=== PATIENT | male | born 1950 | race Caucasian/White ===

== ENCOUNTER 2024-03-19 13:31 | Observation (INO) | payer OTHER ==
[~2024-03-19] VITALS: Ht 180.3 cm; Wt 81.7 kg
[2024-03-19] MEDS ORDERED: OLANZapine ODT 5 MG Tab PO ONE (13:45)
[2024-03-19] MEDS ORDERED: LamoTRIgine 25 MG Tab PO ONE (18:25)
[2024-03-19] MEDS ORDERED: OLANZapine 10 MG Vial IM ONE (18:30)
[2024-03-19] MEDS ORDERED: LamoTRIgine 100 MG Tab PO ONE (18:30)
[2024-03-19 18:51] LABS: BASOPHILS ABSOLUTE AUTO 0.03 K/mm3 (0.00-0.23); BASOPHILS PERCENT AUTO 0 % (0-2); EOSINOPHILS ABSOLUTE AUTO 0.01 K/mm3 (0.00-0.68); EOSINOPHILS PERCENT AUTO 0 % (0-6); Hematocrit 41.9 % (37.0-53.0); Hemoglobin 14.3 g/dL (13.5-17.5); IMMATURE GRAN ABSOLUTE AUTO 0.01 K/mm3 (0.00-0.10); IMMATURE GRAN PERCENT AUTO 0 % (0-1); LYMPHOCYTES ABSOLUTE AUTO 1.12 K/mm3 (0.84-5.20); LYMPHOCYTES PERCENT AUTO 16 % (21-46); MONOCYTES ABSOLUTE AUTO 0.56 K/mm3 (0.16-1.47); MONOCYTES PERCENT AUTO 8 % (4-13); Mean Corpuscular HGB Conc 34.1 g/dL (31.5-36.5); Mean Corpuscular Volume 91 fL (80-100); Mean Platelet Volume 9.4 fL (9.1-12.4); NEUTROPHILS ABSOLUTE AUTO 5.42 K/mm3 (1.96-9.15); NEUTROPHILS PERCENT AUTO 76 % (41-73); Platelet Count 258 K/mm3 (150-400); RDW Coefficient Variation 13.7 % (11.7-14.2); RDW Standard Deviation 44.9 fL (35.1-46.3); Red Blood Cell Count 4.62 M/mm3 (4.30-5.90); White Blood Cell Count 7.15 K/mm3 (4.00-11.30)
[2024-03-19 19:00] LABS: Ethanol (Alcohol), Blood, Med <3 mg/dL; Salicylate <1.7 mg/dL (2.8-20.0)
[2024-03-19 19:07] LABS: Alanine Aminotransfer (ALT/SGP 48 U/L (12-78); Albumin, Blood 3.3 g/dL (3.4-5.0); Albumin/Globulin Ratio 0.9 (0.8-1.8); Alk Phos 94 U/L (50-136); Anion Gap 9 mmol/L (3-11); Aspartate Aminotrans (AST/SGOT 48 U/L (12-37); Bilirubin, Total 0.8 mg/dL (0.1-1.0); Blood Urea Nitrogen 13 mg/dL (8-24); Bun/Creatinine Ratio 19.1 (12.0-20.0); CO2, Blood 26 mmol/L (21-32); Calcium, Blood 8.8 mg/dL (8.5-10.1); Chloride, Blood 110 mmol/L (98-108); Creatinine, Blood 0.68 mg/dL (0.60-1.20); Globulin, Blood 3.6 g/dL (2.2-4.0); Glomerular Filtration Rate 98 (60-); Glucose, Blood 124 mg/dL (70-99); Potassium, Blood 3.5 mmol/L (3.5-5.5); Sodium, Blood 141 mmol/L (136-145); Total Protein, Blood 6.9 g/dL (6.4-8.2)
[2024-03-19 19:15] VITALS: BP 129/71
[2024-03-19 19:16] LABS: Acetaminophen, Random <2.0 ug/mL (10.0-30.0)
[2024-03-19] MEDS ORDERED: LORazepam 2 MG/ML 1ML Injection IV ONE (20:15)
[2024-03-19] MEDS ORDERED: Droperidol 5 mg/2 ml Vial IV ONE (23:00)
[2024-03-19 23:50] LABS: Source, Urine Clean Catch
[2024-03-19 23:53] LABS: Bilirubin, Urine Neg (Neg); Blood, Urine Neg (Neg); Glucose Qualitative, Urine Neg (Neg); Ketones, Urine 1+ (Neg); Leukocyte Esterase, Urine Neg (Neg); Nitrite, Urine Neg (Neg); Protein, Urine Neg (Neg); Urobilinogen, Urine NORM (Normal)
[2024-03-19 23:54] LABS: Appearance, Urine Clear (Clear); Color, Urine Yellow (P-Yellow)
[2024-03-20 00:07] LABS: U Amphetamine Screen Not Detected; U Barbituate Screen Not Detected; U Benzodiazapine Screen Not Detected; U Buprenorphine Screen Not Detected; U Cannabinoids Screen Not Detected; U Cocaine Screen Not Detected; U Methadone Screen Not Detected; U Methamphetamine Screen Not Detected; U Opiates Screen Not Detected; U Oxycodone Screen Not Detected; U Phencyclidine Screen Not Detected
[2024-03-20] MEDS ORDERED: LamoTRIgine 100 MG Tab PO SCH (09:00)
== END 2024-03-20 16:11 | disposition home or self-care (01) ==
LOC: ER 13:31 → EOR 13:32
PROVIDERS: Emergency Medicine; ADMIT Emergency Medicine
DX: F31.9 Bipolar disorder, unspecified (principal); Z91.148 Patient's other noncompliance with medication regimen for other reason
CPT/HCPCS: 80053; 80320; 81003; 85025; 93005; 93010; 96372-59; 96374; 96375; 99285-25; A9270; G0378; G0480; J1790; J2060

== ENCOUNTER 2024-08-22 14:37 | Emergency (ER) | payer OTHER ==
[~2024-08-22] VITALS: Ht 175.3 cm; Wt 88.5 kg
[2024-08-22 14:52] VITALS: BP 143/82
== END 2024-08-22 15:59 | disposition home or self-care (01) ==
LOC: ER 14:37
DX: F23 Brief psychotic disorder (principal); F31.9 Bipolar disorder, unspecified
CPT/HCPCS: 99282

== ENCOUNTER → 2024-08-24 | Outpatient (CLI) | payer OTHER ==
[2024-08-24 11:51] LABS: Source, Urine Voided
[2024-08-24 12:35] LABS: BASOPHILS ABSOLUTE AUTO 0.04 K/mm3 (0.00-0.23); BASOPHILS PERCENT AUTO 1 % (0-2); EOSINOPHILS ABSOLUTE AUTO 0.03 K/mm3 (0.00-0.68); EOSINOPHILS PERCENT AUTO 0 % (0-6); Hematocrit 41.4 % (37.0-53.0); Hemoglobin 14.2 g/dL (13.5-17.5); IMMATURE GRAN ABSOLUTE AUTO 0.01 K/mm3 (0.00-0.10); IMMATURE GRAN PERCENT AUTO 0 % (0-1); LYMPHOCYTES ABSOLUTE AUTO 0.94 K/mm3 (0.84-5.20); LYMPHOCYTES PERCENT AUTO 13 % (21-46); MONOCYTES ABSOLUTE AUTO 0.63 K/mm3 (0.16-1.47); MONOCYTES PERCENT AUTO 9 % (4-13); Mean Corpuscular HGB 30.7 pg (26.0-34.0); Mean Corpuscular HGB Conc 34.3 g/dL (31.5-36.5); Mean Corpuscular Volume 90 fL (80-100); Mean Platelet Volume 9.9 fL (9.1-12.4); NEUTROPHILS ABSOLUTE AUTO 5.66 K/mm3 (1.96-9.15); NEUTROPHILS PERCENT AUTO 78 % (41-73); Platelet Count 278 K/mm3 (150-400); RDW Coefficient Variation 12.8 % (11.7-14.2); RDW Standard Deviation 41.9 fL (35.1-46.3); Red Blood Cell Count 4.62 M/mm3 (4.30-5.90); White Blood Cell Count 7.31 K/mm3 (4.00-11.30)
[2024-08-24 12:54] LABS: Appearance, Urine Clear (Clear); Bilirubin, Urine Neg (Neg); Blood, Urine 1+ (Neg); Color, Urine Yellow (P-Yellow); Glucose Qualitative, Urine Neg (Neg); Ketones, Urine 2+ (Neg); Leukocyte Esterase, Urine Neg (Neg); Nitrite, Urine Neg (Neg); Protein, Urine 1+ (Neg); Urobilinogen, Urine NORM (Normal)
[2024-08-24 13:08] LABS: Bacteria Not Seen /hpf; Mucus Light (0-Heavy); Squamous Epithelial Cells Not Seen /hpf (Few); White Blood Cells, Urine Not Seen /hpf (0-5)
[2024-08-24 13:13] LABS: Albumin, Blood 3.8 g/dL (3.4-5.0); Albumin/Globulin Ratio 1.1 (0.8-1.8); Bilirubin, Total 1.1 mg/dL (0.1-1.0); Bun/Creatinine Ratio 16.6 (12.0-20.0); Calcium, Blood 8.8 mg/dL (8.5-10.1); Creatinine, Blood 0.72 mg/dL (0.60-1.20); Globulin, Blood 3.5 g/dL (2.2-4.0); Potassium, Blood 3.7 mmol/L (3.5-5.5); Thyroid Stimulating Hormone 1.45 uIU/mL (0.360-4.800); Total Protein, Blood 7.3 g/dL (6.4-8.2)
[2024-08-24 15:23] LABS: Lithium 0.45 mmol/L (0.60-1.20)
== END ==
LOC: LAB SHORT 11:49 → LAB 11:49
PROVIDERS: Nurse Practitioner Psychiatric/Mental Health; Student in an Organized Health Care Education/Training Program
DX: R41.82 Altered mental status, unspecified (principal); F31.9 Bipolar disorder, unspecified
CPT/HCPCS: 80053; 80178; 81001; 84443; 85025

== ENCOUNTER 2024-09-01 17:49 | Emergency (ER) | payer OTHER ==
[~2024-09-01] VITALS: Ht 175.3 cm; Wt 88.5 kg
[2024-09-01] MEDS ORDERED: NS 1,000 ML IV SCH (18:20)
[2024-09-01 18:22] LABS: BASOPHILS ABSOLUTE AUTO 0.03 K/mm3 (0.00-0.23); BASOPHILS PERCENT AUTO 0 % (0-2); EOSINOPHILS PERCENT AUTO 0 % (0-6); Hematocrit 38.9 % (37.0-53.0); Hemoglobin 13.2 g/dL (13.5-17.5); IMMATURE GRAN ABSOLUTE AUTO 0.05 K/mm3 (0.00-0.10); IMMATURE GRAN PERCENT AUTO 0 % (0-1); LYMPHOCYTES ABSOLUTE AUTO 0.32 K/mm3 (0.84-5.20); LYMPHOCYTES PERCENT AUTO 3 % (21-46); MONOCYTES ABSOLUTE AUTO 0.87 K/mm3 (0.16-1.47); MONOCYTES PERCENT AUTO 7 % (4-13); Mean Corpuscular HGB 30.6 pg (26.0-34.0); Mean Corpuscular HGB Conc 33.9 g/dL (31.5-36.5); Mean Corpuscular Volume 90 fL (80-100); Mean Platelet Volume 9.6 fL (9.1-12.4); NEUTROPHILS ABSOLUTE AUTO 11.37 K/mm3 (1.96-9.15); NEUTROPHILS PERCENT AUTO 90 % (41-73); Platelet Count 262 K/mm3 (150-400); RDW Coefficient Variation 12.9 % (11.7-14.2); RDW Standard Deviation 42.9 fL (35.1-46.3); Red Blood Cell Count 4.31 M/mm3 (4.30-5.90); White Blood Cell Count 12.64 K/mm3 (4.00-11.30)
[2024-09-01] MEDS ORDERED: Lithium Carbon150 MG PO (18:30)
[2024-09-01] MEDS ORDERED: VITAMIN D350 MC3 PO (18:31)
[2024-09-01] MEDS ORDERED: ARIPIPRAZOLE IM (18:35)
[2024-09-01 18:40] LABS: Ethanol (Alcohol), Blood, Med <3 mg/dL
[2024-09-01] MEDS ORDERED: MIRT15ST PO (18:40)
[2024-09-01] MEDS ORDERED: ATORVASTATIN CALCIUM PO (18:40)
[2024-09-01] MEDS ORDERED: LAMO100 PO (18:41)
[2024-09-01] MEDS ORDERED: Lithium Carbon450 MG PO (18:41)
[2024-09-01 18:46] LABS: Alanine Aminotransfer (ALT/SGP 69 U/L (12-78); Albumin, Blood 3.5 g/dL (3.4-5.0); Albumin/Globulin Ratio 1.1 (0.8-1.8); Alk Phos 76 U/L (50-136); Anion Gap 11 mmol/L (3-11); Aspartate Aminotrans (AST/SGOT 59 U/L (12-37); Bilirubin, Total 1.3 mg/dL (0.1-1.0); Blood Urea Nitrogen 21 mg/dL (8-24); Bun/Creatinine Ratio 13.1 (12.0-20.0); CO2, Blood 25 mmol/L (21-32); Calcium, Blood 9.3 mg/dL (8.5-10.1); Chloride, Blood 106 mmol/L (98-108); Globulin, Blood 3.3 g/dL (2.2-4.0); Glomerular Filtration Rate 45 (60-); Glucose, Blood 154 mg/dL (70-99); Potassium, Blood 4.4 mmol/L (3.5-5.5); Sodium, Blood 138 mmol/L (136-145); Total Protein, Blood 6.8 g/dL (6.4-8.2)
[2024-09-01 19:55] LABS: Lithium 0.71 mmol/L (0.60-1.20)
[2024-09-01 21:19] LABS: Source, Urine Clean Catch
[2024-09-01 21:21] LABS: Appearance, Urine Clear (Clear); Bilirubin, Urine Neg (Neg); Blood, Urine 4+ (Neg); Color, Urine Amber (P-Yellow); Glucose Qualitative, Urine Neg (Neg); Ketones, Urine 2+ (Neg); Leukocyte Esterase, Urine Neg (Neg); Nitrite, Urine Neg (Neg); Protein, Urine 2+ (Neg); Urobilinogen, Urine 2+ (Normal)
[2024-09-01 21:30] VITALS: BP 157/79
[2024-09-01 21:48] LABS: Bacteria Few /hpf; Calcium Oxalate Crystals Few /hpf; Red Blood Cells, Urine 0-2 /hpf (0-2); Squamous Epithelial Cells Mod /hpf (Few); White Blood Cells, Urine 0-2 /hpf (0-5)
[2024-09-01 21:50] LABS: U Amphetamine Screen Not Detected; U Barbituate Screen Not Detected; U Benzodiazapine Screen Not Detected; U Buprenorphine Screen Not Detected; U Cannabinoids Screen Not Detected; U Cocaine Screen Not Detected; U Methadone Screen Not Detected; U Methamphetamine Screen Not Detected; U Opiates Screen Not Detected; U Phencyclidine Screen Not Detected
[2024-09-01 21:51] LABS: U Oxycodone Screen Not Detected
== END 2024-09-01 21:59 | disposition home or self-care (01) ==
LOC: ER 17:49
PROVIDERS: Emergency Medicine
DX: M25.571 Pain in right ankle and joints of right foot (principal); W18.30XA Fall on same level, unspecified, initial encounter; F59 Unspecified behavioral syndromes associated with physiological disturbances and physical factors; R79.89 Other specified abnormal findings of blood chemistry; Z79.899 Other long term (current) drug therapy; Z79.891 Long term (current) use of opiate analgesic; Z79.51 Long term (current) use of inhaled steroids; Z79.52 Long term (current) use of systemic steroids; Z79.83 Long term (current) use of bisphosphonates; Z79.890 Hormone replacement therapy
CPT/HCPCS: 80053; 80178; 80320; 81001; 85025; 93005; 93010; 99285-25; J7030

== ENCOUNTER → 2024-09-07 | Outpatient (CLI) | payer OTHER ==
[~2024-09-07] MED LIST: ARIPIPRAZOLE IM; ATORVASTATIN CALCIUM PO; LAMO100 PO; Lithium Carbon150 MG PO; Lithium Carbon450 MG PO; MIRT15ST PO; VITAMIN D350 MC3 PO
[2024-09-07 11:44] LABS: BASOPHILS ABSOLUTE AUTO 0.03 K/mm3 (0.00-0.23); BASOPHILS PERCENT AUTO 0 % (0-2); EOSINOPHILS ABSOLUTE AUTO 0.01 K/mm3 (0.00-0.68); EOSINOPHILS PERCENT AUTO 0 % (0-6); Hematocrit 42.3 % (37.0-53.0); Hemoglobin 14.9 g/dL (13.5-17.5); IMMATURE GRAN ABSOLUTE AUTO 0.02 K/mm3 (0.00-0.10); IMMATURE GRAN PERCENT AUTO 0 % (0-1); LYMPHOCYTES ABSOLUTE AUTO 0.63 K/mm3 (0.84-5.20); LYMPHOCYTES PERCENT AUTO 8 % (21-46); MONOCYTES ABSOLUTE AUTO 0.54 K/mm3 (0.16-1.47); MONOCYTES PERCENT AUTO 7 % (4-13); Mean Corpuscular HGB 31.1 pg (26.0-34.0); Mean Corpuscular HGB Conc 35.2 g/dL (31.5-36.5); Mean Corpuscular Volume 88 fL (80-100); NEUTROPHILS PERCENT AUTO 85 % (41-73); Platelet Count 319 K/mm3 (150-400); RDW Coefficient Variation 12.9 % (11.7-14.2); RDW Standard Deviation 41.9 fL (35.1-46.3); Red Blood Cell Count 4.79 M/mm3 (4.30-5.90); White Blood Cell Count 7.93 K/mm3 (4.00-11.30)
[2024-09-07 11:55] LABS: Lithium <0.20 mmol/L (0.60-1.20)
[2024-09-07 12:03] LABS: Albumin, Blood 3.5 g/dL (3.4-5.0); Albumin/Globulin Ratio 0.9 (0.8-1.8); Bun/Creatinine Ratio 16.5 (12.0-20.0); Calcium, Blood 8.9 mg/dL (8.5-10.1); Creatinine, Blood 0.67 mg/dL (0.60-1.20); Globulin, Blood 3.7 g/dL (2.2-4.0); Potassium, Blood 3.2 mmol/L (3.5-5.5); Total Protein, Blood 7.2 g/dL (6.4-8.2)
== END ==
LOC: LAB SHORT 09:25 → LAB 09:25
PROVIDERS: Student in an Organized Health Care Education/Training Program
DX: F31.74 Bipolar disorder, in full remission, most recent episode manic (principal)
CPT/HCPCS: 80053; 80178; 85025

== ENCOUNTER 2024-09-14 22:10 | Observation (INO) | payer OTHER ==
[~2024-09-14] VITALS: Ht 182.9 cm; Wt 65.8 kg
[2024-09-15] MEDS ORDERED: NS 1,000 ML IV SCH (00:30)
[2024-09-15] MEDS ORDERED: OLANZapine 10 MG Vial IM ONE (01:05)
[2024-09-15] MEDS ORDERED: Haloperidol Lactate Inj. 5 MG/ML Injection IM ONE (01:10)
[2024-09-15 01:44] LABS: Salicylate <1.7 mg/dL (2.8-20.0)
[2024-09-15] MEDS ORDERED: LORazepam 2 MG/ML 1ML Injection IV ONE (02:05)
[2024-09-15 02:07] LABS: Acetaminophen, Random <2.0 ug/mL (10.0-30.0); Alanine Aminotransfer (ALT/SGP 77 U/L (12-78); Albumin, Blood 3.3 g/dL (3.4-5.0); Albumin/Globulin Ratio 0.8 (0.8-1.8); Alk Phos 75 U/L (50-136); Anion Gap 16 mmol/L (3-11); Aspartate Aminotrans (AST/SGOT 80 U/L (12-37); Blood Urea Nitrogen 12 mg/dL (8-24); Bun/Creatinine Ratio 17.7 (12.0-20.0); CO2, Blood 22 mmol/L (21-32); Calcium, Blood 9.1 mg/dL (8.5-10.1); Chloride, Blood 101 mmol/L (98-108); Creatinine, Blood 0.68 mg/dL (0.60-1.20); Globulin, Blood 3.9 g/dL (2.2-4.0); Glomerular Filtration Rate 98 (60-); Glucose, Blood 110 mg/dL (70-99); Potassium, Blood 4.3 mmol/L (3.5-5.5); Sodium, Blood 135 mmol/L (136-145); Total Protein, Blood 7.2 g/dL (6.4-8.2)
[2024-09-15 03:05] LABS: Base Excess Venous 0 mmol/L; Bicarbonate Venous 24.3 mmol/L (24.0-30.0); PCO2 Venous 39.9 mmHg (38-42)
[2024-09-15 03:12] LABS: BASOPHILS ABSOLUTE AUTO 0.04 K/mm3 (0.00-0.23); BASOPHILS PERCENT AUTO 1 % (0-2); EOSINOPHILS ABSOLUTE AUTO 0.02 K/mm3 (0.00-0.68); EOSINOPHILS PERCENT AUTO 0 % (0-6); Hematocrit 41.7 % (37.0-53.0); Hemoglobin 14.6 g/dL (13.5-17.5); IMMATURE GRAN ABSOLUTE AUTO 0.04 K/mm3 (0.00-0.10); IMMATURE GRAN PERCENT AUTO 1 % (0-1); LYMPHOCYTES ABSOLUTE AUTO 0.79 K/mm3 (0.84-5.20); LYMPHOCYTES PERCENT AUTO 12 % (21-46); MONOCYTES PERCENT AUTO 6 % (4-13); Mean Corpuscular HGB 30.4 pg (26.0-34.0); Mean Corpuscular Volume 87 fL (80-100); NEUTROPHILS ABSOLUTE AUTO 5.31 K/mm3 (1.96-9.15); NEUTROPHILS PERCENT AUTO 80 % (41-73); RDW Coefficient Variation 13.2 % (11.7-14.2); Red Blood Cell Count 4.81 M/mm3 (4.30-5.90)
[2024-09-15 03:29] LABS: Platelet Count 259 K/mm3 (150-400)
[2024-09-15 06:05] LABS: Source, Urine Clean Catch
[2024-09-15 06:17] LABS: Appearance, Urine Clear (Clear); Bilirubin, Urine Neg (Neg); Blood, Urine Neg (Neg); Color, Urine Yellow (P-Yellow); Glucose Qualitative, Urine Neg (Neg); Ketones, Urine Neg (Neg); Leukocyte Esterase, Urine Neg (Neg); Nitrite, Urine Neg (Neg); Protein, Urine Neg (Neg); Urobilinogen, Urine NORM (Normal)
[2024-09-15 06:31] LABS: U Amphetamine Screen Not Detected; U Barbituate Screen Not Detected; U Benzodiazapine Screen Not Detected; U Buprenorphine Screen Not Detected; U Cannabinoids Screen Not Detected; U Cocaine Screen Not Detected; U Methadone Screen Not Detected; U Methamphetamine Screen Not Detected; U Opiates Screen Not Detected; U Oxycodone Screen Not Detected; U Phencyclidine Screen Not Detected
[2024-09-15] MEDS ORDERED: LamoTRIgine 25 MG Tab PO SCH (09:00)
[2024-09-15 10:42] LABS: Lithium 0.25 mmol/L (0.60-1.20)
[2024-09-16 12:46] LABS: CORONAVIRUS COVID-19 AG Negative (NEGATIVE)
[2024-09-16] MEDS ORDERED: OLANZapine ODT 5 MG Tab PO ONE (15:05)
[2024-09-17 06:51] VITALS: BP 121/75
[2024-09-17 09:30] LABS: Influenza A, PCR NEGATIVE (NEGATIVE); Influenza B, PCR NEGATIVE (NEGATIVE); Resp Syncytial Virus, PCR NEGATIVE (NEGATIVE); SARS-Cov-2 (COVID-19) PCR, MMC NEGATIVE (NEGATIVE)
== END 2024-09-17 09:57 | disposition other institution (70) ==
LOC: ER 22:10 → EOR 22:11 → ER 09-15 05:19 → EOR 09-15 05:19
PROVIDERS: Emergency Medicine; Student in an Organized Health Care Education/Training Program; ADMIT Emergency Medicine
DX: F31.9 Bipolar disorder, unspecified (principal); E86.0 Dehydration; Z79.899 Other long term (current) drug therapy
CPT/HCPCS: 0241U; 51798; 80053; 80178; 81003; 82140; 82803; 85025; 87426-QW; 93005; 93010; 96372-59; 96374; 99285-25; A9270; G0378; G0480; J1630; J2060; J7030

== ENCOUNTER 2024-11-06 19:13 | Emergency (ER) | payer OTHER ==
[~2024-11-06] VITALS: Ht 188 cm; Wt 83.9 kg
[~2024-11-06 19:13] MED LIST changes: +ATORVALIQ20 MG/5 ML PO; +Haldol 5 mg Tab5 MG PO; +REMERON1510 PO
[2024-11-06 19:41] LABS: BASOPHILS ABSOLUTE AUTO 0.02 K/mm3 (0.00-0.23); BASOPHILS PERCENT AUTO 0 % (0-2); EOSINOPHILS PERCENT AUTO 0 % (0-6); Hematocrit 37.5 % (37.0-53.0); Hemoglobin 12.6 g/dL (13.5-17.5); IMMATURE GRAN ABSOLUTE AUTO 0.03 K/mm3 (0.00-0.10); IMMATURE GRAN PERCENT AUTO 0 % (0-1); LYMPHOCYTES ABSOLUTE AUTO 0.62 K/mm3 (0.84-5.20); LYMPHOCYTES PERCENT AUTO 9 % (21-46); MONOCYTES ABSOLUTE AUTO 0.51 K/mm3 (0.16-1.47); MONOCYTES PERCENT AUTO 7 % (4-13); Mean Corpuscular HGB 31.2 pg (26.0-34.0); Mean Corpuscular HGB Conc 33.6 g/dL (31.5-36.5); Mean Corpuscular Volume 93 fL (80-100); Mean Platelet Volume 10.3 fL (9.1-12.4); NEUTROPHILS PERCENT AUTO 83 % (41-73); Platelet Count 220 K/mm3 (150-400); RDW Coefficient Variation 14.4 % (11.7-14.2); RDW Standard Deviation 49.2 fL (35.1-46.3); Red Blood Cell Count 4.04 M/mm3 (4.30-5.90); White Blood Cell Count 7.08 K/mm3 (4.00-11.30)
[2024-11-06] MEDS ORDERED: MIRT15 PO (21:37)
[2024-11-06] MEDS ORDERED: LITH300C PO (21:37)
[2024-11-06] MEDS ORDERED: TRAZ50 PO (21:38)
[2024-11-06 21:57] LABS: Albumin, Blood 2.9 g/dL (3.4-5.0); Albumin/Globulin Ratio 0.8 (0.8-1.8); Bilirubin, Total 0.5 mg/dL (0.1-1.0); Bun/Creatinine Ratio 22.4 (12.0-20.0); Calcium, Blood 8.6 mg/dL (8.5-10.1); Creatinine, Blood 0.76 mg/dL (0.60-1.20); Globulin, Blood 3.5 g/dL (2.2-4.0); Potassium, Blood 3.8 mmol/L (3.5-5.5); Total Protein, Blood 6.4 g/dL (6.4-8.2)
[2024-11-07 14:30] VITALS: BP 116/70
== END 2024-11-07 14:59 | disposition home or self-care (01) ==
LOC: ER 19:13
PROVIDERS: Student in an Organized Health Care Education/Training Program
DX: F31.9 Bipolar disorder, unspecified (principal); R62.7 Adult failure to thrive; R53.1 Weakness; Z74.1 Need for assistance with personal care; E78.5 Hyperlipidemia, unspecified; Z79.899 Other long term (current) drug therapy
CPT/HCPCS: 80053; 83735; 85025; 93005; 93010; 97161; 99285-25

== ENCOUNTER → 2024-11-09 | Outpatient (CLI) | payer OTHER ==
[~2024-11-09] MED LIST changes: +LITH300C PO; +MIRT15 PO; +TRAZ50 PO
[2024-11-09 14:20] LABS: BASOPHILS ABSOLUTE AUTO 0.03 K/mm3 (0.00-0.23); BASOPHILS PERCENT AUTO 1 % (0-2); EOSINOPHILS ABSOLUTE AUTO 0.03 K/mm3 (0.00-0.68); EOSINOPHILS PERCENT AUTO 1 % (0-6); Hematocrit 39.3 % (37.0-53.0); Hemoglobin 12.8 g/dL (13.5-17.5); IMMATURE GRAN ABSOLUTE AUTO 0.02 K/mm3 (0.00-0.10); IMMATURE GRAN PERCENT AUTO 0 % (0-1); LYMPHOCYTES ABSOLUTE AUTO 0.83 K/mm3 (0.84-5.20); LYMPHOCYTES PERCENT AUTO 17 % (21-46); MONOCYTES ABSOLUTE AUTO 0.42 K/mm3 (0.16-1.47); MONOCYTES PERCENT AUTO 9 % (4-13); Mean Corpuscular HGB Conc 32.6 g/dL (31.5-36.5); Mean Corpuscular Volume 95 fL (80-100); Mean Platelet Volume 10.5 fL (9.1-12.4); NEUTROPHILS ABSOLUTE AUTO 3.58 K/mm3 (1.96-9.15); NEUTROPHILS PERCENT AUTO 73 % (41-73); Platelet Count 220 K/mm3 (150-400); RDW Coefficient Variation 14.5 % (11.7-14.2); RDW Standard Deviation 50.7 fL (35.1-46.3); Red Blood Cell Count 4.13 M/mm3 (4.30-5.90); White Blood Cell Count 4.91 K/mm3 (4.00-11.30)
[2024-11-09 14:55] LABS: Albumin, Blood 2.8 g/dL (3.4-5.0); Albumin/Globulin Ratio 0.8 (0.8-1.8); Bilirubin, Total 0.3 mg/dL (0.1-1.0); Bun/Creatinine Ratio 18.6 (12.0-20.0); Calcium, Blood 8.9 mg/dL (8.5-10.1); Creatinine, Blood 0.7 mg/dL (0.60-1.20); Globulin, Blood 3.6 g/dL (2.2-4.0); Potassium, Blood 4.6 mmol/L (3.5-5.5); Total Protein, Blood 6.4 g/dL (6.4-8.2)
== END ==
LOC: LAB 12:19 → LAB SHORT 12:19
PROVIDERS: Student in an Organized Health Care Education/Training Program
DX: E86.0 Dehydration (principal)
CPT/HCPCS: 80053; 80164; 85025

== ENCOUNTER 2024-11-17 18:12 | Emergency (ER) | payer OTHER ==
[~2024-11-17] VITALS: Ht 175.3 cm; Wt 72.6 kg
[2024-11-17 18:24] VITALS: BP 131/75
[2024-11-17 19:08] LABS: BASOPHILS ABSOLUTE AUTO 0.02 K/mm3 (0.00-0.23); BASOPHILS PERCENT AUTO 0 % (0-2); EOSINOPHILS ABSOLUTE AUTO 0.00 K/mm3 (0.00-0.68); EOSINOPHILS PERCENT AUTO 0 % (0-6); Hematocrit 40.8 % (37.0-53.0); Hemoglobin 13.4 g/dL (13.5-17.5); IMMATURE GRAN ABSOLUTE AUTO 0.05 K/mm3 (0.00-0.10); IMMATURE GRAN PERCENT AUTO 1 % (0-1); LYMPHOCYTES ABSOLUTE AUTO 0.58 K/mm3 (0.84-5.20); LYMPHOCYTES PERCENT AUTO 5 % (21-46); MONOCYTES ABSOLUTE AUTO 1.42 K/mm3 (0.16-1.47); MONOCYTES PERCENT AUTO 13 % (4-13); Mean Corpuscular HGB Conc 32.8 g/dL (31.5-36.5); Mean Corpuscular Volume 93 fL (80-100); NEUTROPHILS ABSOLUTE AUTO 8.67 K/mm3 (1.96-9.15); NEUTROPHILS PERCENT AUTO 81 % (41-73); NRBC ABSOLUTE 0.00 K/mm3 (0.00-0.02); NRBC Auto 0.0 /100 WBC (0.0-0.2); Platelet Count 201 K/mm3 (150-400); RDW Coefficient Variation 14.4 % (11.7-14.2); RDW Standard Deviation 49.8 fL (35.1-46.3)
[2024-11-17 19:13] LABS: Alanine Aminotransfer (ALT/SGP 33.0 U/L (12-78); Albumin, Blood 3.1 g/dL (3.4-5.0); Albumin/Globulin Ratio 0.8 (0.8-1.8); Anion Gap 7.0 mmol/L (3-11); Aspartate Aminotrans (AST/SGOT 29.0 U/L (12-37); Bilirubin, Total 0.7 mg/dL (0.1-1.0); Blood Urea Nitrogen 17.0 mg/dL (8-24); CO2, Blood 31.0 mmol/L (21-32); Calcium, Blood 9.6 mg/dL (8.5-10.1); Chloride, Blood 103.0 mmol/L (98-108); Creatinine, Blood 0.72 mg/dL (0.60-1.20); Globulin, Blood 4.0 g/dL (2.2-4.0); Glucose, Blood 103.0 mg/dL (70-99); Potassium, Blood 4.0 mmol/L (3.5-5.5); Sodium, Blood 137.0 mmol/L (136-145); Total Protein, Blood 7.1 g/dL (6.4-8.2)
== END 2024-11-17 20:22 | disposition home or self-care (01) ==
LOC: ER 18:12
PROVIDERS: Student in an Organized Health Care Education/Training Program
DX: R22.42 Localized swelling, mass and lump, left lower limb (principal); Z79.899 Other long term (current) drug therapy; E78.5 Hyperlipidemia, unspecified
CPT/HCPCS: 71046; 80053; 83880; 85025; 93005; 93010; 93971; 99284-25

== ENCOUNTER → 2024-12-29 | Outpatient (CLI) | payer OTHER ==
[2024-12-29 12:31] LABS: Alanine Aminotransfer (ALT/SGP 22 U/L (12-78); Albumin, Blood 2.6 g/dL (3.4-5.0); Albumin/Globulin Ratio 0.7 (0.8-1.8); Anion Gap 3 mmol/L (3-11); Aspartate Aminotrans (AST/SGOT 35 U/L (12-37); Bilirubin, Total 0.5 mg/dL (0.1-1.0); Blood Urea Nitrogen 21 mg/dL (8-24); CO2, Blood 29 mmol/L (21-32); Calcium, Blood 8.7 mg/dL (8.5-10.1); Chloride, Blood 109 mmol/L (98-108); Creatinine, Blood 0.60 mg/dL (0.60-1.20); Globulin, Blood 3.8 g/dL (2.2-4.0); Glucose, Blood 62 mg/dL (70-99); Potassium, Blood 4.9 mmol/L (3.5-5.5); Sodium, Blood 136 mmol/L (136-145); Total Protein, Blood 6.4 g/dL (6.4-8.2)
== END ==
LOC: LAB 11:51 → LAB SHORT 11:51
PROVIDERS: Nurse Practitioner Psychiatric/Mental Health
DX: F31.9 Bipolar disorder, unspecified (principal)
CPT/HCPCS: 80053; 80164

== ENCOUNTER 2025-03-02 19:12 | Emergency (ER) | payer OTHER ==
[~2025-03-02] VITALS: Ht 175.3 cm; Wt 72.6 kg
[2025-03-02 19:56] LABS: BASOPHILS ABSOLUTE AUTO 0.04 K/mm3 (0.00-0.23); BASOPHILS PERCENT AUTO 1 % (0-2); EOSINOPHILS ABSOLUTE AUTO 0.01 K/mm3 (0.00-0.68); EOSINOPHILS PERCENT AUTO 0 % (0-6); Hematocrit 34.5 % (37.0-53.0); Hemoglobin 11.6 g/dL (13.5-17.5); IMMATURE GRAN ABSOLUTE AUTO 0.02 K/mm3 (0.00-0.10); IMMATURE GRAN PERCENT AUTO 0 % (0-1); LYMPHOCYTES ABSOLUTE AUTO 1.02 K/mm3 (0.84-5.20); LYMPHOCYTES PERCENT AUTO 16 % (21-46); MONOCYTES ABSOLUTE AUTO 0.99 K/mm3 (0.16-1.47); MONOCYTES PERCENT AUTO 16 % (4-13); Mean Corpuscular HGB Conc 33.6 g/dL (31.5-36.5); Mean Corpuscular Volume 94 fL (80-100); NEUTROPHILS ABSOLUTE AUTO 4.22 K/mm3 (1.96-9.15); NEUTROPHILS PERCENT AUTO 67 % (41-73); NRBC ABSOLUTE 0.00 K/mm3 (0.00-0.02); NRBC Auto 0.0 /100 WBC (0.0-0.2); Platelet Count 180 K/mm3 (150-400); RDW Coefficient Variation 14.9 % (11.7-14.2); RDW Standard Deviation 52.2 fL (35.1-46.3)
[2025-03-02 20:26] LABS: Alanine Aminotransfer (ALT/SGP 30.0 U/L (12-78); Albumin, Blood 2.8 g/dL (3.4-5.0); Albumin/Globulin Ratio 0.8 (0.8-1.8); Anion Gap 5.0 mmol/L (3-11); Aspartate Aminotrans (AST/SGOT 43.0 U/L (12-37); Bilirubin, Total 0.3 mg/dL (0.1-1.0); Blood Urea Nitrogen 14.0 mg/dL (8-24); CO2, Blood 31.0 mmol/L (21-32); Calcium, Blood 8.8 mg/dL (8.5-10.1); Chloride, Blood 108.0 mmol/L (98-108); Creatinine, Blood 0.66 mg/dL (0.60-1.20); Globulin, Blood 3.6 g/dL (2.2-4.0); Glucose, Blood 93.0 mg/dL (70-99); Potassium, Blood 4.2 mmol/L (3.5-5.5); Sodium, Blood 140.0 mmol/L (136-145); Total Protein, Blood 6.4 g/dL (6.4-8.2)
[2025-03-02] MEDS ORDERED: CEPHALEXIN500 M1 PO (22:24)
[2025-03-02 22:30] VITALS: BP 127/67
[2025-03-02] MEDS ORDERED: Ondansetron 4 MG SoluTab MM ONE (22:35)
[2025-03-02] MEDS ORDERED: RX Prepack 2 Tabs Ondansetron ODT 4MG UD ONE (22:45)
== END 2025-03-02 22:52 | disposition home or self-care (01) ==
LOC: ER 19:12
PROVIDERS: Student in an Organized Health Care Education/Training Program
DX: S01.112A Laceration without foreign body of left eyelid and periocular area, initial encounter (principal); R60.0 Localized edema; D64.9 Anemia, unspecified; E78.5 Hyperlipidemia, unspecified; W18.30XA Fall on same level, unspecified, initial encounter; Z79.899 Other long term (current) drug therapy
CPT/HCPCS: 12013; 70450; 80053; 83880; 84484; 85025; 93005; 93010; 99284-25; A9270